=== PATIENT | female | born 1980 | race Caucasian/White ===

== ENCOUNTER 2019-04-13 11:29 | Emergency (ER) | payer BC ==
--- NOTE | 2019-04-13 12:11 | EDM.PDOC ---
ED HPI GENERAL MEDICAL PROBLEM - General Chief Complaint: Abdominal Pain Stated Complaint: ABDOMINAL PAIN Time Seen by Provider: 04/13/19 12:11 - History of Present Illness INITIAL COMMENTS - FREE TEXT/NARRATIVE: 38-year-old female presents emergency room with severe left-sided abdominal pain. This started around 9:30 this morning it is mostly the left lower quadrant at this point it might shoot into her groin he did not start in her back. She's not had any fevers or chills she has some nausea no vomiting. Recently the patient was diagnosed with a kidney stone on the side and is due to have it removed on Tuesday. The patient thinks it was a 2 mm stone we have tried to get the CT but thus far have not been able to get it. Left Lower Abdomen Pain Score (Numeric/FACES): 10 - Related Data Allergies Allergy/AdvReac Type Severity Reaction Status Date / Time Penicillins Allergy Rash Verified 04/13/19 11:51 Home Meds: Home Meds Acetaminophen/HYDROcodone [[place] 325-5 MG] 1 - 2 tab PO ASDIRECTED PRN #20 tablet 04/13/19 [Rx] Ondansetron [Zofran ODT] 4 mg PO Q6H PRN #10 tab.dis 04/13/19 [Rx] Tamsulosin [Tamsulosin 24 Hr] 0.4 mg PO Q24H #3 cap.er 04/13/19 [Rx] Past Medical History Genitourinary History: Reports: Renal Calculus - Past Surgical History GI Surgical History: Reports: Appendectomy, Bariatric Procedure Female Surgical History: Reports: Hysterectomy Social & Family History - Tobacco Use Smoking Status *Q: Never Smoker ED ROS GENERAL - Review of Systems Review Of Systems: See Below Constitutional: Denies: Fever, Chills HEENT: Reports: No Symptoms Respiratory: Reports: No Symptoms Cardiovascular: Reports: Dyspnea on Exertion GI/Abdominal: Reports: Abdominal Pain, Nausea. Denies: Constipation, Diarrhea, Vomiting : Reports: Pain. Denies: Hematuria Musculoskeletal: Reports: No Symptoms Skin: Reports: No Symptoms Neurological: Reports: No Symptoms ED EXAM, GI/ABD - Physical Exam Exam: See Below Exam Limited By: No Limitations General Appearance: Alert, Mild Distress (From the pain ) Head: Atraumatic, Normocephalic Neck: Normal Inspection, Supple, Non-Tender, Full Range of Motion Respiratory/Chest: No Respiratory Distress, Lungs Clear, Normal Breath Sounds Cardiovascular: Regular Rate, Rhythm, No Edema, No Murmur GI/Abdominal Exam: Normal Bowel Sounds, Soft, Other (She has marked left abdominal especially lower quadrant discomfort not worsened severely with palpation no rigidity or rebound or guarding noted) Back Exam: Normal Inspection. No: CVA Tenderness (L), CVA Tenderness (R) Course - Vital Signs Last Recorded V/S: Last Vital Signs Temp 36.4 C 04/13/19 11:48 Pulse 80 04/13/19 11:48 Resp 18 04/13/19 11:48 BP 178/88 H 04/13/19 11:48 Pulse Ox 100 04/13/19 11:48 - Orders/Labs/Meds Orders: Active Orders 24 hr Category Date Time Status Lactated Ringers [Ringers, Lactated] 1,000 ml Med 04/13/19 12:30 Active IV ASDIRECTED Medication Orders Lactated Ringer's (Ringers, Lactated) 1,000 mls @ 75 mls/hr IV ASDIRECTED BETHEL Last Admin: 04/13/19 12:38 Dose: 75 mls/hr Labs: Laboratory Tests 04/13/19 04/13/19 04/13/19 Range/Units 12:42 12:49 12:56 WBC 7.78 (3.98-10.04) K/mm3 RBC 3.72 L (3.98-5.22) M/mm3 Hgb 10.5 L (11.2-15.7) gm/dl Hct 31.9 L (34.1-44.9) % MCV 85.8 (79.4-94.8) fl MCH 28.2 (25.6-32.2) pg MCHC 32.9 (32.2-35.5) g/dl RDW Std Deviation 40.2 (36.4-46.3) fL Plt Count 228 (182-369) K/mm3 MPV 10.0 (9.4-12.3) fl Neutrophils % (Manual) 71 H (40-60) % Band Neutrophils % 0 (0-10) % Lymphocytes % (Manual) 26 (20-40) % Atypical Lymphs % 0 % Monocytes % (Manual) 1 L (2-10) % Eosinophils % (Manual) 1 (0.7-5.8) % Basophils % (Manual) 1 (0.1-1.2) Platelet Estimate Adequate RBC Morph Comment Normal Sodium (136-145) mEq/L Potassium (3.5-5.1) mEq/L Chloride (98-107) mEq/L Carbon Dioxide (21-32) mEq/L Anion Gap (5-15) BUN (7-18) mg/dL Creatinine (0.55-1.02) mg/dL Est Cr Clr Drug Dosing Estimated GFR (MDRD) (>60) mL/min BUN/Creatinine Ratio (14-18) Glucose (74-106) mg/dL Calcium (8.5-10.1) mg/dL Total Bilirubin (0.2-1.0) mg/dL AST (15-37) U/L ALT (14-59) U/L Alkaline Phosphatase (46-116) U/L Total Protein (6.4-8.2) g/dl Albumin (3.4-5.0) g/dl Globulin gm/dL Albumin/Globulin Ratio (1-2) Urine Color Yellow (Yellow) Urine Appearance Clear (Clear) Urine pH 7.5 (5.0-8.0) Ur Specific [place] 1.020 (1.005-1.030) Urine Protein Negative (Negative) Urine Glucose (UA) Negative (Negative) Urine Ketones Negative (Negative) Urine Occult Blood Negative (Negative) Urine Nitrite Negative (Negative) Urine Bilirubin Negative (Negative) Urine Urobilinogen 0.2 (0.2-1.0) Ur Leukocyte Esterase Negative (Negative) Urine RBC 0-5 (0-5) /hpf Urine WBC 0-5 (0-5) /hpf Ur Squamous Epith Cells 0-5 (0-5) /hpf Urine Bacteria Few (FEW) /hpf Urine Mucus Few (FEW) /hpf Urine HCG, Qual Negative (NEGATIVE) 04/13/19 Range/Units 12:56 WBC (3.98-10.04) K/mm3 RBC (3.98-5.22) M/mm3 Hgb (11.2-15.7) gm/dl Hct (34.1-44.9) % MCV (79.4-94.8) fl MCH (25.6-32.2) pg MCHC (32.2-35.5) g/dl RDW Std Deviation (36.4-46.3) fL Plt Count (182-369) K/mm3 MPV (9.4-12.3) fl Neutrophils % (Manual) (40-60) % Band Neutrophils % (0-10) % Lymphocytes % (Manual) (20-40) % Atypical Lymphs % % Monocytes % (Manual) (2-10) % Eosinophils % (Manual) (0.7-5.8) % Basophils % (Manual) (0.1-1.2) Platelet Estimate RBC Morph Comment Sodium 139 (136-145) mEq/L Potassium 3.5 (3.5-5.1) mEq/L Chloride 107 (98-107) mEq/L Carbon Dioxide 24 (21-32) mEq/L Anion Gap 11.5 (5-15) BUN 11 (7-18) mg/dL Creatinine 0.9 (0.55-1.02) mg/dL Est Cr Clr Drug Dosing TNP Estimated GFR (MDRD) > 60 (>60) mL/min BUN/Creatinine Ratio 12.2 L (14-18) Glucose 99 (74-106) mg/dL Calcium 8.9 (8.5-10.1) mg/dL Total Bilirubin 0.4 (0.2-1.0) mg/dL AST 14 L (15-37) U/L ALT 20 (14-59) U/L Alkaline Phosphatase 42 L (46-116) U/L Total Protein 6.8 (6.4-8.2) g/dl Albumin 3.5 (3.4-5.0) g/dl Globulin 3.3 gm/dL Albumin/Globulin Ratio 1.1 (1-2) Urine Color (Yellow) Urine Appearance (Clear) Urine pH (5.0-8.0) Ur Specific [place] (1.005-1.030) Urine Protein (Negative) Urine Glucose (UA) (Negative) Urine Ketones (Negative) Urine Occult Blood (Negative) Urine Nitrite (Negative) Urine Bilirubin (Negative) Urine Urobilinogen (0.2-1.0) Ur Leukocyte Esterase (Negative) Urine RBC (0-5) /hpf Urine WBC (0-5) /hpf Ur Squamous Epith Cells (0-5) /hpf Urine Bacteria (FEW) /hpf Urine Mucus (FEW) /hpf Urine HCG, Qual (NEGATIVE) Meds: Medications Generic Name Dose Route Start Last Admin Trade Name Reza PRN Reason Stop Dose Admin Lactated Ringer's 1,000 mls @ 75 mls/hr 04/13/19 12:30 04/13/19 12:38 Ringers, Lactated IV 75 mls/hr ASDIRECTED BETHEL Administration Discontinued Medications Generic Name Dose Route Start Last Admin Trade Name Reza PRN Reason Stop Dose Admin Hydrocodone Bitart/Acetaminophen 1 tab 04/13/19 16:30 04/13/19 16:50 [place] 325-5 Mg PO 04/13/19 16:31 1 tab ONETIME ONE Administration Fentanyl 100 mcg 04/13/19 12:23 04/13/19 12:38 Sublimaze IVPUSH 04/13/19 12:24 100 mcg ONETIME ONE Administration Fentanyl 100 mcg 04/13/19 14:34 04/13/19 14:40 Sublimaze IVPUSH 04/13/19 14:35 100 mcg ONETIME ONE Administration Morphine Sulfate 4 mg 04/13/19 15:30 04/13/19 15:39 Morphine IVPUSH 04/13/19 15:31 4 mg ONETIME ONE Administration Morphine Sulfate 4 mg 04/13/19 16:10 04/13/19 16:23 Morphine IVPUSH 04/13/19 16:11 4 mg ONETIME ONE Administration Ondansetron HCl 4 mg 04/13/19 12:23 04/13/19 12:38 Zofran IVPUSH 04/13/19 12:24 4 mg ONETIME ONE Administration Tamsulosin HCl 0.4 mg 04/13/19 15:33 04/13/19 15:39 Flomax PO 04/13/19 15:34 0.4 mg ONETIME ONE Administration - Re-Assessments/Exams Free Text/Narrative Re-Assessment/Exam: 04/13/19 15:40 He shouldn't has had good but nonsustained pain relief with fentanyl CT shows her stone in the left is now set at the UPJ with proximal obstruction collecting system dilation. Case was reviewed with Dr. Lebron urologist at [facility] in [place] who recommends you've another stone probably will never passed getting Flomax as it can decrease her pain requirements and to try her on morphine for smooth muscle relaxation as well we will do this anticipate discharge home. 04/13/19 17:29 Patient is doing better after 2 4 mg shots morphine. She's also given a single [place]. We will attempt to discharge home with [place] and Zofran Departure - Departure Time of Disposition: 17:30 Disposition: Home, Self-Care 01 Clinical Impression: Left renal stone - Discharge Information Prescriptions: Acetaminophen/HYDROcodone [[place] 325-5 MG] 1 - 2 tab PO ASDIRECTED PRN #20 tablet PRN Reason: Abdominal Pain Ondansetron [Zofran ODT] 4 mg PO Q6H PRN #10 tab.dis PRN Reason: Nausea/Vomiting Tamsulosin [Tamsulosin 24 Hr] 0.4 mg PO Q24H #3 cap.er Referrals: Roya Hooper MD [Primary Care Provider] - Forms: ED Department Discharge Additional Instructions: Return to the emergency room with any questions problems or worsening symptoms. Follow-up at [facility] Tuesday as scheduled for the stone removal. Use medications as directed Sepsis Event Note - Evaluation Sepsis Screening Result: No Definite Risk - Focused Exam Vital Signs: Vital Signs Temp Pulse Resp BP Pulse Ox 04/13/19 11:48 36.4 C 80 18 178/88 H 100 Date Exam was Performed: 04/13/19 Time Exam was Performed: 17:29 - My Orders Last 24 Hours: My Active Orders 04/13/19 12:30 Lactated Ringers [Ringers, Lactated] 1,000 ml IV ASDIRECTED - Assessment/Plan Last 24 Hours: My Active Orders 04/13/19 12:30 Lactated Ringers [Ringers, Lactated] 1,000 ml IV ASDIRECTED
[2019-04-13] MEDS ORDERED: fentaNYL 100 MCG/2 ML SDV IVPUSH ONE ×2 (12:23→14:34)
[2019-04-13] MEDS ORDERED: Ondansetron 4 MG/2 ML SDV IVPUSH ONE (12:23)
[2019-04-13] MEDS ORDERED: Lactated Ringers 1,000 ML IV SCH (12:30)
--- NOTE | 2019-04-13 15:07 | CT ---
CT abdomen and pelvis Technique: Multiple axial sections were obtained from above the dome of the diaphragm inferiorly through the pubic symphysis. Intravenous and oral contrast was not utilized. Study has been performed as a ureteral stone protocol. Findings: Large calculus is seen within the left renal pelvis at the UPJ measuring 1.5 cm which is causing proximal collecting system dilatation. No other abnormal calcifications are seen along the course of the ureters. No other abnormal calcifications seen within the kidneys. Visualized lung bases show nothing acute. Noncontrast appearance of the liver and spleen appear within normal limits. Adrenal glands show no nodule. Pancreas is within normal limits. Previous stomach surgery is noted. Gallbladder contains no calcified gallstones. Aorta shows no aneurysm. No retroperitoneal adenopathy or mesenteric abnormalities are seen. Surgical material is seen along the tip of the cecum. Appendix is not seen. Cyst is noted within the right ovary measuring 3.9 cm. Small amount of free fluid is seen next to the cyst most likely representing cyst leakage. No additional pelvic abnormality is appreciated. Bone window settings were reviewed which appear within normal limits for the patient's age. Impression: 1. Proximal obstructing stone on the left side measuring 1.5 cm located at the UPJ causing proximal dilatation of the left collecting system. 2. 3.9 cm cyst within the right ovary with small amount of fluid next to the cyst most likely representing slight leakage. 3. Other normal findings as noted above. Diagnostic code #3 This report was dictated in [place] Standard Time
[2019-04-13] MEDS ORDERED: Tamsulosin 0.4 MG Cap.ER PO ONE (15:33)
[2019-04-13] MEDS ORDERED: Morphine 4 MG/ML Syringe IVPUSH ONE (16:10)
[2019-04-13] MEDS ORDERED: Acetaminophen/HYDROcodone 325-5 MG Tab PO ONE (16:30)
== END 2019-04-13 18:00 | disposition home or self-care (01) ==
LOC: JD.ED 11:29
DX: N20.0 Calculus of kidney (principal); Z88.0 Allergy status to penicillin
CPT/HCPCS: 36415; 74176; 80053; 81001; 81025; 85007; 85027; 96361; 96374; 96375; 96376; 99284; A9270; J2270; J2405; J3010; J7120